=== PATIENT | male | born 1995 | race Caucasian/White ===

== ENCOUNTER 2019-03-05 19:36 | Emergency (ER) | payer MEDICAID ==
[~2019-03-05] VITALS: Ht 188 cm; Wt 115.7 kg
[2019-03-05 19:51] VITALS: BP 131/76
== END 2019-03-05 20:49 | disposition home or self-care (01) ==
LOC: ER 19:39
DX: S40.012A Contusion of left shoulder, initial encounter (principal); S20.212A Contusion of left front wall of thorax, initial encounter; M54.5 Low back pain; V49.49XA Driver injured in collision with other motor vehicles in traffic accident, initial encounter; Y93.89 Activity, other specified; Y92.413 State road as the place of occurrence of the external cause; Y99.8 Other external cause status
CPT/HCPCS: 71045-TC; 73030-TC